=== PATIENT | female | born 1980 | race Caucasian/White ===

== ENCOUNTER 2020-07-09 23:31 | Emergency (ER) | payer OTHER ==
[~2020-07-09] VITALS: Ht 177.8 cm; Wt 87.5 kg
[~2020-07-09 23:31] MED LIST: BACITRACIN15 GM TOP; BACTRIM DS TAB1 EACH PO; CEPHALEXIN500 MG PO; CYCLOBENZAPRINE10 MG PO; ESTRADIOL2 MG PO; FLEXERIL10 MG PO; GABAPENTIN300 MG PO; IBUPROFEN600 MG PO; IBUPROFEN800 MG PO; MOBIC7.5 MG PO; PERCOCET 5-3251 EACH PO; TRAMADOL HCL50 MG PO; ULTRAM50 MG PO; VICODIN ES 7.51 EAC1 PO; XANAX0.5 MG PO; ZOLOFT50 MG PO
--- NOTE | 2020-07-12 16:01 | PATH ---
[facility] [address] [place], [place] [address] Signed ORDERING PHYSICIAN: Dianne Henning MD PATIENT NAME: RAÚL SNYDER GENDER: Home : 1980 Prior History: No cases found. SPECIMEN(S): MOLECULAR PATHOLOGY RESULTS: SARS-CoV-2 Not Detected ADDITIONAL NOTES.: The [employer] Fusion SARS-CoV-2 Assay is a multiplex real-time PCR (RT-PCR) in vitro diagnostic test intended for the qualitative detection of RNA from SARS-CoV-2 from individuals who meet COVID-19 clinical and/or epidemiological criteria. In general, SARS-CoV-2 RNA can be detected during the acute phase of infection. Positive results indicate the presence of SARS-CoV-2 RNA. Clinical correlation with patient history and other diagnostic information is necessary to determine patient infection status. Positive results do not rule out bacterial infection or co-infection with other viruses. Negative results do not preclude SARS-CoV-2 infection and should not be used as the sole basis for patient management decisions. Negative results must be combined with other clinical observations, patient history, and epidemiological information. The [employer] Fusion SARS-CoV-2 Assay is not yet approved or cleared by the [place] FDA. When there are no FDA-approved or cleared tests available, and other criteria are met, FDA can make tests available under an emergency access mechanism called an Emergency Use Authorization (EUA). The EUA for this test is supported by the Shipping Team Leader of Health and Human Service's (HHS's) declaration that circumstances exist to justify the emergency use of in vitro diagnostics for the detection and/or diagnosis of the virus that causes COVID-19. This EUA will remain in effect for the duration of the COVID-19 declaration justifying emergency of IVDs, unless it is terminated or revoked by FDA, after which the test may no longer be used. The Pear[employer] Fusion SARS-CoV-2 Assay is for use only under EUA PATIENT NAME: RAÚL SNYDER PATHOLOGY DATE OF : [birth year] REPORT #: [id number] PHYSICIAN: KIERA PATHOLOGY PCP: NO PRIMARY CARE PHYSICIAN REPORT IS CONFIDENTIAL AND NOT TO BE RELEASED WITHOUT AUTHORIZATION [facility] [address] [place] [id number] Signed in laboratories certified under the Clinical Laboratory Improvement Amendments of 1988 (CLIA) to perform high complexity tests. [facility] is certified under CLIA to perform high complexity clinical laboratory testing. PERFORMING LABORATORY.: Molecular testing was performed by [facility] [address] [place], [place] [address] [address] (Bus Company Manager: Andriy Escamilla D.O.; CLIA#: [id number]) Diagnostician: System Interface Pathologist Electronically Signed 07/12/2020 Copies: ~ PATIENT NAME: RAÚL SNYDER PATHOLOGY DATE OF : [birth year] REPORT #: [id number] PHYSICIAN: KIERA REYES PCP: NO PRIMARY CARE PHYSICIAN REPORT IS CONFIDENTIAL AND NOT TO BE RELEASED WITHOUT AUTHORIZATION
== END 2020-07-10 00:45 | disposition home or self-care (01) ==
LOC: ED 23:31
DX: B34.9 Viral infection, unspecified (principal); Z20.828 Contact with and (suspected) exposure to other viral communicable diseases; F17.200 Nicotine dependence, unspecified, uncomplicated; Z88.0 Allergy status to penicillin; Z88.8 Allergy status to other drugs, medicaments and biological substances
CPT/HCPCS: 87081; 87147; 87880; 99283; C9803

== ENCOUNTER 2021-05-09 18:05 | Emergency (ER) | payer OTHER ==
[~2021-05-09] VITALS: Ht 177.8 cm; Wt 108.9 kg
== END 2021-05-09 21:11 | disposition home or self-care (01) ==
LOC: ED 18:05
DX: R60.0 Localized edema (principal); M25.562 Pain in left knee; F17.200 Nicotine dependence, unspecified, uncomplicated; Z88.0 Allergy status to penicillin; Z88.1 Allergy status to other antibiotic agents; M06.9 Rheumatoid arthritis, unspecified
CPT/HCPCS: 73560; 96372; 99284-25; J1885

== ENCOUNTER 2024-09-21 13:49 | Emergency (ER) | payer OTHER ==
[~2024-09-21] VITALS: Ht 177.8 cm; Wt 117.9 kg
[~2024-09-21 13:49] MED LIST changes: +CEPHALEXIN500 M1 PO; +CLEOCIN HCL300 MG PO; +K-TAB ER20 MEQ PO; +LASIX40 MG PO; +METFORMIN PO; +METHOTREXATE2.5 MG PO; +PHENTERMINE HCL15 MG PO; +TRIAMCINOLONE A15 G3 TOP; +VITAMIN D21250 MCG PO
[2024-09-21] MEDS ORDERED: ELIQUIS5 MG PO (14:10)
[2024-09-21] MEDS ORDERED: DULOXETINE HCL20 MG PO (14:10)
[2024-09-21] MEDS ORDERED: OZEMPIC0.25 MG/02 (14:11)
[2024-09-21] MEDS ORDERED: HYDROCODONE/ACETA 7.5/325 TAB PO ONE (15:15)
[2024-09-21 16:03] LABS: BASOPHILS 0.6 % (0-2); HEMATOCRIT 39.6 % (35.0-50.0); HEMOGLOBIN 12.8 g/dL (12.0-18.0); LYMPHOCYTES 25.5 % (24-44); MCH 26.5 (27-36); MCHC 32.3 g/dl (30-36); MCV 82.1 fl (81-99); MONOCYTES 10.3 % (0-12); NEUTROPHILS 57.6 % (39-80); PLATELET COUNT 216 K/uL (140-440); RBC 4.82 M/ul (4.3-5.7); RDW 16.7 (10.5-15.0)
[2024-09-21 16:10] LABS: PARTIAL THROMBOPLASTIN TIME 34.4 Sec (22.9-41.3)
[2024-09-21 16:11] LABS: INR 1.31 (0.80-1.30); PROTIME 16.2 Sec (11.2-14.2)
[2024-09-21 16:15] LABS: ALBUMIN 2.9 g/dL (3.4-5.0); ALBUMIN/GLOBULIN RATIO 0.58 (1.1-2.4); ANION GAP 7.7 (7-21); BILIRUBIN, TOTAL 0.5 ng/dL (0.2-1.0); BUN/CREATININE RATIO 12.5 (6.0-28.6); CALCIUM 9.7 mg/dL (8.5-10.1); CREATININE, SERUM 0.96 mg/dL (0.55-1.02); POTASSIUM 3.7 mmol/L (3.5-5.1); PROTEIN, TOTAL 7.9 g/dL (6.4-8.2)
[2024-09-21] MEDS ORDERED: APIXABAN 5 MG TAB PO ONE (19:00)
[2024-09-21] MEDS ORDERED: HYDROCODON-ACE1 EA11 PO (19:28)
[2024-09-21] MEDS ORDERED: HYDROCODONE BIT/ACETAMINOPHEN 5/325 MG 1 TAB HOME.PACK PO ONE (19:30)
[2024-09-21 20:02] VITALS: BP 114/80
--- NOTE | 2024-09-22 15:05 | EKG ---
[facility] [address] [facility] [place], [place] [address] Signed Normal sinus rhythm Normal ECG No previous ECGs available Confirmed by Sunshine Fuentes MD ([id number]) on 09/22/2024 3:05:15 PM Electronically Signed By: SUNSHINE FUENTES MD 09/22/24 1505 PATIENT NAME: RAÚL SNYDER Electrocardiogram DATE OF : [birth year] PHYSICIAN: SUNSHINE FUENTES MD REPORT #: [id number] REPORT IS CONFIDENTIAL AND NOT TO BE RELEASED WITHOUT AUTHORIZATION
== END 2024-09-21 19:58 | disposition home or self-care (01) ==
LOC: ED 13:49
PROVIDERS: Emergency Medicine
DX: I82.411 Acute embolism and thrombosis of right femoral vein (principal); I82.431 Acute embolism and thrombosis of right popliteal vein; I82.441 Acute embolism and thrombosis of right tibial vein; I82.451 Acute embolism and thrombosis of right peroneal vein; M06.9 Rheumatoid arthritis, unspecified; F17.200 Nicotine dependence, unspecified, uncomplicated; Z79.84 Long term (current) use of oral hypoglycemic drugs; Z79.85 Long-term (current) use of injectable non-insulin antidiabetic drugs; Z79.01 Long term (current) use of anticoagulants; Z79.899 Other long term (current) drug therapy
CPT/HCPCS: 36415; 74177; 80053; 85025; 85610; 85730; 93005; 93010; 93971; 99284-25; A9270

== ENCOUNTER 2025-08-30 16:32 | Emergency (ER) | payer OTHER ==
[~2025-08-30] VITALS: Ht 177.8 cm; Wt 112.0 kg
[~2025-08-30 16:32] MED LIST changes: +DULOXETINE HCL20 MG PO; +ELIQUIS5 MG PO; +HYDROCODON-ACE1 EA11 PO; +OZEMPIC0.25 MG/02
[2025-08-30] MEDS ORDERED: HYDROmorphone HCL 1 MG/ML SYR IV PRN (17:15)
[2025-08-30] MEDS ORDERED: KETOROLAC TROMETHAMINE 15 MG/ML VIAL IV ONE (17:15)
[2025-08-30 17:44] LABS: BASOPHILS 0.5 % (0.1-1.2); EOSINOPHILS 2.8 % (0.7-5.8); LYMPHOCYTES 36.0 % (19.3-51.7); MCH 26.3 PG (25.6-32.2); MCHC 31.2 g/dL (32.2-35.5); MCV 84.1 fL (79.4-94.8); MONOCYTES 9.0 % (4.7-12.5); NEUTROPHILS 51.5 % (34.0-71.1); RBC 4.15 M/uL (3.93-5.22)
[2025-08-30 18:06] LABS: ALT (SGPT) 17.0 U/L (14-59); AST (SGOT) 14.0 U/L (15-37); GLOMERULAR FILTRATION RATE,EST 84.0 mL/min (>60); PROTEIN, TOTAL 7.6 g/dL (6.4-8.2); UREA NITROGEN 10.0 mg/dL (7-18)
[2025-08-30] MEDS ORDERED: CEPHALEXIN500 M1 PO (18:53)
[2025-08-30 18:59] VITALS: BP 115/77
[2025-08-30] MEDS ORDERED: HYDROCODONE BIT/ACETAMINOPHEN 5/325 MG 1 TAB HOME.PACK PO ONE (19:00)
== END 2025-08-30 19:08 | disposition home or self-care (01) ==
LOC: ED 16:32
PROVIDERS: Emergency Medicine
DX: L03.115 Cellulitis of right lower limb (principal); F17.200 Nicotine dependence, unspecified, uncomplicated; Z79.84 Long term (current) use of oral hypoglycemic drugs; Z79.899 Other long term (current) drug therapy; Z88.1 Allergy status to other antibiotic agents
CPT/HCPCS: 36415; 80053; 83605; 85025; 96374; 96375; 99284-25; A9270; J1171; J1885